=== PATIENT | male | born 1955 | race Caucasian/White ===

== ENCOUNTER 2024-11-10 16:42 | Inpatient (IN) | payer OTHER, SELFPAY ==
[2024-11-10] VITALS (7 sets, daily range): BP systolic 142–173; BP diastolic 101–133; BMI 23.6
--- NOTE | 2024-11-10 11:16 | ED.GENMED ---
History of Present Illness
General
Chief Complaint: Breathing Problem
Source: patient and spouse
Exam Limitations: none
Time Seen by Provider: 11/10/24 11:07
Nursing documentation reviewed up to this point in time: agreed with
History of Present Illness
History of Present Illness:
69 yo male w hx/o HTN PE on Xarelto, presents for a cough that has worsened over the past 5 days. His is just getting over a similar cough, his two 4-year-old twin granddaughters had similar URIs recently. Patient went to urgent care and had
a pulse ox of 93%, they put him on 4 L and he improved to 95%. He has had a productive cough with significant wheezing. He denies fever or chills. He denies chest pain.
Recent travel by plane to [place] for 2 weeks, he returned on 10/22.
Past History
Past History
ED Past Medical History: HTN, Hypercholesterolemia and Other (Pulmonary embolism 4 years ago after shoulder surgery)
ED Past Surgical History: Orthopedic (Fracture right shoulder surgically repaired)
Social History
Tobacco: Former smoker
Alcohol: None
Personal:
Living: with family
Employment: Retired
Review of Systems
Review of Systems
Allergies reviewed?: Yes
All Other Systems: ROS reviewed and negative except as documented in HPI and ROS
Constitutional: Denies fever
Respiratory: Reports cough and trouble breathing
Cardiac: Denies chest pain
ABD/GI: Denies abdominal pain, nausea, vomiting or diarrhea
: Denies dysuria or difficulty voiding
Musculoskeletal: Reports no symptoms
Skin: Reports no symptoms
Neurological: Reports no symptoms
Phy Exam
Physical Exam
Physical Exam:
GENERAL: No acute distress. A&Ox3.
CONSTITUTIONAL: Afebrile.
EYES: clear, conjunctivae normal
ENMT: moist mucus membranes, Pharynx nl
RESPIRATORY: Regular respirations, nonlabored, lungs with wheezing inspiratory and expiratory, coarse junky cough. Pulse ox 95% on 2 L nasal cannula
CARDIOVASCULAR: Regular rate and rhythm, no murmurs, no rubs.
GI: Soft, nontender
MUSCULOSKELETAL: Moves with ease. Well perfused.
SKIN: Warm, dry, pink
PSYCH: Normal mood and affect. Well kept, interactive and appropriate
NEUROLOGIC: Awake, alert and oriented. No focal neurological deficits
Scores
Heart Failure Risk
Heart Failure Risk Score: Not Applicable
Sepsis
Sepsis Screening
Sepsis Assessment: Sepsis Ruled Out
Sepsis Screen
Sepsis Screen: Sepsis Ruled Out
Date: 11/10/24
Time: 20:07
Course
Orders/Labs/Results
Orders:
Orders
11/10/24 11:03
Electrocardiogram (*1) Urgent
Reason for Study: Shortness of Breath
CR Chest - 2 Views Urgent
Comment:
Reason For Exam: cough
11/10/24 11:04
EKG- Treatment ONCE
11/10/24 11:18
Ipratropium/Albuterol Sulfate [Duoneb] 3 ml INH R NOW STA
11/10/24 11:19
COVID-19 Antigen Urgent
Source: Nasal Swab
Complete Blood Count/With Diff Urgent
Comprehensive Metabolic Panel Urgent
Influenza A+B Rapid Molecular Urgent
ROX Source: Nasal Swab
Specimen Description:
11/10/24 Dinner
Regular
At Your Request: Full Participation
Does patient need a safe tray?: No
11/10/24 15:22
Dexamethasone Sod Phosphate [Decadron] 10 mg IV NOW STA
Ipratropium/Albuterol Sulfate [Duoneb] 3 ml INH R NOW STA
11/10/24 16:23
Admit/Transfer Patient As Directed
Co-Sign Provider:
Level of Care: Inpatient admission
Assign to:: Medical/Surgical
Physician / Group: Lauryn Malcolm
Diagnosis: acute COPD exacerbation
Reason for Hospitalization: acute COPD exacerbation
Expected length of stay greater than two midnights?: Yes
ELOS- Estimated Length of Stay in days: 3
I certify the patient meets the requirements for IP care: Yes
PRN Pain Medication Management As Directed
May give lesser potent ordered pain med per pt: Yes
preference::
Protocol:: Medication orders for pain may be administered in a
manner that supports deferring to patient preference
when the pt is:
- Requesting an ordered lesser potent pain medication.
Least to most potent pain medications are defined
as: acetaminophen < NSAID < tramadol < opioids
(morphine, oxycodone, hydromorphone).
- Requesting a lesser dose of the same medication IF
ORDERED.
- Requesting a less intrusive route of administration
if both routes are prescribed by the provider (PO <
IV).
11/10/24 16:25
Code Status As Directed
Resuscitation Status: Full Code
11/10/24 17:57
Acetaminophen [Tylenol] 650 mg PO Q4HPRN PRN
Ipratropium/Albuterol Sulfate [Duoneb] 3 ml INH R Q4HPRN PRN
11/10/24 17:57
Activity As Directed
Activity Level: As Tolerated
Intake/ Output As Directed
Frequency: Per unit guidelines
Vital Signs As Directed
Frequency: Per unit guidelines
Weight As Directed
Frequency: Once
Comment: on admission
Copd Education [RESP] Routine
O2 Therapy [RESP] Routine
Titrate/Wean O2 to maintain O2 sat greater than (%): 93
Special Instructions: adjust, if necessary, to avoid hyperoxia in CO2 retainers.
Use High Flow O2 if necessary
11/10/24 20:00
Ipratropium/Albuterol Sulfate [Duoneb] 3 ml INH R QID
Triamcinolone Ointment [Triamcinolone Acetonide 0.1% Ointment] 1 applic TOPICAL BID
11/10/24 22:00
Cyclobenzaprine HCl [Flexeril] 10 mg PO HS
Trazodone [Desyrel] 100 mg PO HS
Zolpidem Tartrate [Ambien] 10 mg PO HS
11/11/24 06:00
Basic Metabolic Panel IN AM
Complete Blood Count/With Diff IN AM
Dexamethasone Sod Phosphate [Decadron] 6 mg IV Q12H
11/11/24 08:00
Docusate Sodium [Colace] 200 mg PO DAILY
Lisinopril [Zestril] 10 mg PO DAILY
Multivitamin [Theragran] 1 tablet PO DAILY
Pantoprazole [Protonix] 40 mg PO DAILY
Rivaroxaban [Xarelto] 20 mg PO DAILY
Tamsulosin [Flomax] 0.4 mg PO DAILY
Abnormal Lab Results
11/10/24
11:19
MCH 32.1 H pg
(27.0-31.0)
Absolute Neuts (auto) 8.6 H 10^3/uL
(1.4-6.5)
Absolute Lymphs (auto) 0.7 L 10^3/uL
(1.2-3.4)
Absolute Monos (auto) 0.9 H 10^3/uL
(0.1-0.6)
Neutrophils % 84.6 H %
(42.2-75.2)
Lymphocytes % 6.5 L %
(20.5-51.1)
Sodium 131 L mmol/L
(135-145)
Chloride 94 L mmol/L
(98-107)
Carbon Dioxide 31 H mmol/L
(22-30)
Glucose 136 H mg/dl
(70-99)
Total Bilirubin 1.7 H mg/dl
(0.2-1.3)
11/10/24 11:19
11/10/24 11:19
Vital Signs
Initial and Last Documented VS:
Initial Vital Signs
Temp Pulse Resp BP Pulse Ox
98.3 F 112 32 173/133 95
11/10/24 11:04 11/10/24 11:04 11/10/24 11:04 11/10/24 11:04 11/10/24 11:04
Last Documented Vital Signs
Temp Pulse Resp BP Pulse Ox
97.4 F 108 18 153/113 92
11/10/24 19:45 11/10/24 19:45 11/10/24 19:45 11/10/24 19:45 11/10/24 19:45
MDM/Problems Addressed
Differential Diagnosis Includes:
Reactive airway/asthma, bronchitis, pneumonia, COPD
MDM/Problems Addressed:
69 yo male w hx/o HTN PE on Xarelto, presents for a cough that has worsened over the past 5 days. His is just getting over a similar cough, his two 4-year-old twin granddaughters had similar URIs recently. Patient went to urgent care and had
a pulse ox of 93%, they put him on 4 L and he improved to 95%. He has had a productive cough with significant wheezing. He denies fever or chills. He denies chest pain.
Recent travel by plane to [place] for 2 weeks, he returned on 10/22.
EKG sinus tach with occasional PVCs
11:45 AM
CBC with no clinically significant abnormality
CMP no clinically significant abnormality
COVID-negative
3:15 PM:
Chest x-ray reveals no acute abnormality, flattening of the diaphragm consistent with COPD. Patient states he has never had this problem before and denies COPD
Not much improvement after DuoNeb
Second DuoNeb ordered as well as Decadron IV
4:00 PM
patient still struggling to breathe, hypoxemic off oxygen
Plan: Admit exacerbation COPD
hospitalist notified of admission
*EKG
EKG Intrepretation Date: 11/10/24
Interpretation: abnormal
Heart Rate: 114
Rate: tachycardiac
Rhythm: sinus
[place]: normal axis
Interval: normal interval
QRS Pattern: normal QRS
Ischemia: no ischemia
*Critical Care Note
Total Time (30-74mins, 75-104mins- exclusive of procedures): Not Applicable
ED Attending Note
-
Portions of this chart may have been created with voice recognition software.� Occasional wrong word or��sound alike� substitutions may have occurred due to the inherent limitations of voice recognition software.
Discharge Plan
Departure
Patient Disposition: Admit
Date of Disposition: 11/10/24
Time of Disposition: 15:50
Admit to: Med/Surg
Presentation/result/management discussed w/ accepting MD/DO: Hospitalist
Condition: Fair
Covid-19: Negative COVID-19
Discharge Problem:
Acute exacerbation of chronic obstructive pulmonary disease
Interventions
Interventions:
*Risk Screen - Suicide Last Done: 11/10/24 11:04
*General Assessment Last Done: 11/10/24 11:04
*Neglect/Abuse Screening Last Done: 11/10/24 11:04
*ED- Fall Risk Assessment Last Done: 11/10/24 11:28
*ED COVID-19 Vaccine History Last Done: 11/10/24 18:10
*Nursing Disposition Last Done: 11/10/24 18:00
ED- Cardiac Assessment Last Done: 11/10/24 11:26
ED- Pulmonary Assessment Last Done: 11/10/24 11:26
Discharge Date and Time
Discharge Date/Time: 11/10/24 18:00
[2024-11-10] MEDS: DUONEB 3 ML INH ×3 (11:21→20:18)
[2024-11-10 11:40] LABS: % Basophils 0.3 % (0-2); % Immature Granulocytes 0.3 % (0-0.5); % Lymphocytes 6.5 % (20.5-51.1); % Monocytes 8.3 % (1.7-9.3); % Neutrophils 84.6 % (42.2-75.2); ALT (SGPT) 23 U/L (0-50); AST (SGOT) 37 U/L (17-59); Absolute Lymphocytes 0.7 10^3/uL (1.2-3.4); Absolute Monocytes 0.9 10^3/uL (0.1-0.6); Absolute Neutrophils 8.6 10^3/uL (1.4-6.5); Albumin 4.2 g/dl (3.5-5.0); Alkaline Phosphatase 67 U/L (38-126); Blood Urea Nitrogen 15 mg/dl (9-20); Calcium 8.9 mg/dl (8.4-10.2); Carbon Dioxide 31 mmol/L (22-30); Chloride 94 mmol/L (98-107); Estimated Creatinine Clearance 84 ml/min; Glucose 136 mg/dl (70-99); Hematocrit 46.1 % (39.0-52.0); Hemoglobin 16.3 g/dL (13.0-18.0); Mean Corp Hgb Conc. 35.4 g/dL (33.0-37.0); Mean Corpuscular Hgb 32.1 pg (27.0-31.0); Mean Corpuscular Volume 90.7 fL (80.0-94.0); Nucleated Red Blood Cells % 0 % (-); Potassium 3.8 mmol/L (3.5-5.1); Red Blood Cell Count 5.08 10^6/uL (4.70-6.10); Red Cell Dist. Width 13.9 % (11.5-14.5); Sodium 131 mmol/L (135-145); Total Bilirubin 1.7 mg/dl (0.2-1.3); Total Protein 7.2 g/dl (6.3-8.2); White Blood Cell Count 10.2 10^3/uL (4.8-10.8); eGFR > 60.00
[2024-11-10 11:45] LABS: COVID-19 Antigen Negative (Negative)
[2024-11-10 12:06] LABS: Mean Platelet Volume 9.5 fL (7.4-10.4)
[2024-11-10 12:07] LABS: Platelet Count 131 10^3/uL (130-400)
[2024-11-10] MEDS: DECADRON 10 MG IV (15:26)
--- NOTE | 2024-11-10 15:56 | HPS.HSE ---
Family Physician
-
Family Physician: Maria Fernanda Crespo MD
Chief Complaint
-
cough
History of Present Illness
Patient is a 69-year-old male with past medical history significant for hypertension, hyperlipidemia, pulmonary embolism on Xarelto who presented to [facility] for evaluation of worsening cough over the past 5 days. Patient has multiple family members
with similar symptoms that have resolved for them. Patient states he went to urgent care this morning and they informed him he had too much going on for them to do anything and would need to be seen at the ED. Urgent care called EMS to transport
patient. He states while there they initiated oxygen but does not know why. He reports having a productive cough with clear sputum for past 5 days with associated shortness of breath. Denies any fever, chills, chest pain, nausea, vomiting,
constipation, diarrhea or urinary symptoms.
Medical History
Past Medical History
Past Medical History: Reports Other
Additional Past Medical History:
hypertension
hyperlipidemia
pulmonary embolism on Xarelto
Past Surgical History: Reports Other
Additional Past Surgical History:
Fracture right shoulder surgically repaired
Social History
Tobacco: Former Smoker (quit 10 years ago was a pack a day smoker)
Alcohol: Daily (3 rum and cokes daily )
Drug: None and Former User (medical marijuana formerly )
Personal:
Living: With Family
Employment: Retired
Family History
Family History: Other (Father: ALS; Mother: dementia, CVA)
Allergies / Home Medications
Allergies reflects when Allergies were last updated in [facility].
Home Medications with original date entered in [facility]
Allergy/Medication List:
Allergies
Allergy/AdvReac Type Severity Reaction Status Date / Time
No Known Allergies Allergy Verified 11/10/24 11:04
Home Medications
benzonatate 200 mg capsule 1 mg PO TIDPRN PRN cough 11/10/24
cyclobenzaprine 10 mg tablet 10 mg PO HS 11/10/24
docusate sodium 100 mg tablet 200 mg PO DAILY 11/10/24
lisinopril 10 mg tablet 10 mg PO DAILY 11/10/24
omeprazole 40 mg capsule,delayed release 40 mg PO DAILY 11/10/24
rivaroxaban 20 mg tablet (Xarelto) 20 mg PO DAILY 11/10/24
sildenafil 100 mg tablet 100 mg PO DAILYPRN PRN sexual function 11/10/24
tamsulosin 0.4 mg capsule 0.4 mg PO DAILY 11/10/24
therapeutic multivitamin 1 tab PO DAILY 11/10/24
trazodone 100 mg tablet 100 mg PO HS 11/10/24
triamcinolone acetonide 0.1 % topical ointment 1 applic topical BID 11/10/24
zolpidem 10 mg tablet 10 mg PO HS 11/10/24
Review of Systems
-
History Source: Patient
Constitutional: Reports No Symptoms
EENT: Reports No Symptoms
Respiratory: Reports Cough (productive ) and Trouble Breathing (worsening shortness of breath )
Cardiac: Reports No Symptoms
Abdomen/GI: Reports No Symptoms
: Reports No Symptoms
Musculoskeletal: Reports No Symptoms
Skin: Reports No Symptoms
Neurological: Reports No Symptoms
Endocrine: Reports No Symptoms
Hematologic/Lymphatic: Reports No Symptoms
Psych: Reports No Symptoms
Physical Exam
Vital Signs
Vital Signs
Temp Pulse Resp BP Pulse Ox
98.3 F 101 26 151/109 95
11/10/24 11:04 11/10/24 14:30 11/10/24 14:30 11/10/24 14:00 11/10/24 14:30
Physical Exam
General: Well Developed, Well Nourished, No Apparent Distress, Comfortable and Conversant
HEENT: NormoCephalic, Atraumatic, Nose Appears Normal and Ears Appear Normal
Respiratory: Wheezes, Non Labored Respirations and Other (moist cough )
Cardiac: S1/S2, Regular Rhythm and Tachycardia
Breast: Deferred by me
GI: Soft, Non Tender, Non Distended and Normal Bowel Sounds
Rectal: Deferred by Provider
Genito-urinary: Deferred by me
Musculoskeletal: No Clubbing, No Cyanosis and No Edema
Skin: Warm, Dry and IV/Catheter Site
Neuro: Awake, Alert, AO x 3 and Nonfocal/grossly intact
Psych: Calm and Intact Judgment/Insight
Laboratory Results
-
11/10/24 11:19
11/10/24 11:19
Laboratory Results
Total Bilirubin 1.7 mg/dl (0.2-1.3) H 11/10/24 11:19
AST 37 U/L (17-59) 11/10/24 11:19
ALT 23 U/L (0-50) 11/10/24 11:19
Alkaline Phosphatase 67 U/L (38-126) 11/10/24 11:19
Data Reviewed
-
Diagnostic Radiology: Report Reviewed by me (CXR: No acute disease of the chest. Findings suggesting COPD. Age-indeterminate compression fractures as described above.)
Medical Tests (Nuc Med, Echo, EKG etc): Report Reviewed by me (EKG; SINUS TACHYCARDIA WITH OCCASIONAL PREMATURE VENTRICULAR COMPLEXES POSSIBLE LEFT ATRIAL ENLARGEMENT)
Lab Data: Labs Reviewed by me (Na + 131)
Impression/Plan
-
IMPRESSION/PLAN:
#cough and shortness of breath likely 2/2 COPD exacerbation
Na+ 131
CXR: No acute disease of the chest.
Findings suggesting COPD.
Age-indeterminate compression fractures as described above.
EKG: SINUS TACHYCARDIA WITH OCCASIONAL PREMATURE VENTRICULAR COMPLEXES
POSSIBLE LEFT ATRIAL ENLARGEMENT
Covid: negative
Influenza: negative
- Admit to med/surg
- IV dexamethasone
- DuoNebs
- supportive care
#hypertension
- continue lisinopril
#pulmonary embolism
on Xarelto
- continue Xarelto
#GERD
- continue omeprazole
#hyperlipidemia
Code status: full code
DVT prophylaxis: Xarelto
--- NOTE | 2024-11-10 17:41 | W.PN.UPDATE ---
Update Note
Progress Note Update
This is an addendum to H&P written by Luh Berger on 11/10/2024.� Patient seen examined independently with BEE TENDER.
69-year-old male past medical history of hypertension, provoked�pulmonary embolism after shoulder surgery�4 years ago on Xarelto, hypercholesteremia, presenting with cough worsening over 5 days.� Multiple family numbers with similar cough.� Pulse ox
93% on 4 L.
Patient tachycardic.
Chest x-ray shows no acute disease of the chest, likely COPD.� EKG shows sinus tachycardia.
Patient�with�likely acute COPD exacerbation.� DuoNebs every 6 hours, dexamethasone.
--- NOTE | 2024-11-10 18:10 | PTCARENOTE ---
11/10- Patient oriented and transferred to unit without issue. Patient is AAOX3 but WEBB, has Inspiratory/Expiratory wheezing throughout with an occasional harsh nonproductive wet cough. POX=91% on RA with HX=897. POX=97% on 2L with EF=151. Systemic
maculopapular rash observed. Patient states he drinks 2-4 Bacari-cokes daily, but his last drink was 5 days ago, which was when all of these symptoms began, as per patient. Notified Physician. Continue to monitor.
[2024-11-10] MEDS: ZESTRIL 10 MG PO (20:21)
[2024-11-10] MEDS: THIAMINE INJECTION 200 MG IV (21:50)
[2024-11-10] MEDS: DESYREL 100 MG PO (21:57)
[2024-11-10] MEDS: FLEXERIL PO (21:58)
[2024-11-10] MEDS: FLEXERIL 10 MG PO (21:59)
[2024-11-10] MEDS: AMBIEN 10 MG PO (22:35)
[2024-11-10] MEDS: TRIAMCINOLONE ACETONIDE 0.1% OINTMENT 1 APPLIC TOPICAL (22:35)
[2024-11-11 00:19] VITALS: BP 156/100
[2024-11-11 01:37] VITALS: BP 154/102
[2024-11-11] MEDS: DECADRON 6 MG IV (05:35)
[2024-11-11 06:50] VITALS: BP 137/95
[2024-11-11] MEDS: DUONEB 3 ML INH ×4 (07:22→19:20)
[2024-11-11 07:47] LABS: % Basophils 0.1 % (0-2); % Immature Granulocytes 0.3 % (0-0.5); % Monocytes 6.2 % (1.7-9.3); % Neutrophils 87.4 % (42.2-75.2); Absolute Lymphocytes 0.6 10^3/uL (1.2-3.4); Absolute Monocytes 0.6 10^3/uL (0.1-0.6); Hemoglobin 16.2 g/dL (13.0-18.0); Mean Corpuscular Hgb 32.3 pg (27.0-31.0); Mean Corpuscular Volume 89.8 fL (80.0-94.0); Mean Platelet Volume 9.6 fL (7.4-10.4); Nucleated Red Blood Cells % 0 % (-); Platelet Count 136 10^3/uL (130-400); Red Blood Cell Count 5.01 10^6/uL (4.70-6.10); Red Cell Dist. Width 13.6 % (11.5-14.5); White Blood Cell Count 9.2 10^3/uL (4.8-10.8)
[2024-11-11] MEDS: COLACE 200 MG PO (08:13)
[2024-11-11] MEDS: FLOMAX 0.4 MG PO (08:13)
[2024-11-11] MEDS: XARELTO 20 MG PO (08:13)
[2024-11-11] MEDS: THERAGRAN 1 TABLET PO (08:14)
[2024-11-11] MEDS: PROTONIX 40 MG PO (08:14)
[2024-11-11] MEDS: TRIAMCINOLONE ACETONIDE 0.1% OINTMENT 1 APPLIC TOPICAL ×2 (08:14→21:16)
[2024-11-11] MEDS: ZESTRIL 10 MG PO (08:14)
[2024-11-11 08:33] LABS: Blood Urea Nitrogen 21 mg/dl (9-20); Calcium 8.9 mg/dl (8.4-10.2); Carbon Dioxide 27 mmol/L (22-30); Chloride 98 mmol/L (98-107); Estimated Creatinine Clearance 94 ml/min; Glucose 148 mg/dl (70-99); Potassium 3.7 mmol/L (3.5-5.1); Sodium 133 mmol/L (135-145); eGFR > 60.00
--- NOTE | 2024-11-11 15:15 | W.PN.HOSP.TC ---
Today's Communication/Plan
-
Nebs
AB
Steroids
Assessment / Plan
Assessment / Plan
69-year-old male with cough
CVS: S1-S2 normal
Chest: Rales and Rhonchi B/L
Abdomen: Soft, NT / Bowel sounds present
Extremities: No edema
# COPD exacerbation
Chest x-ray with no acute changes
COVID and influenza negative
Continue DuoNebs, steroids
Sputum Cx
# Hypertension-continue lisinopril
# Pulmonary bowel is on-continue Xarelto
# Prostate Disease-continue Flomax
# GERD-continue PPI
# Insomnia-continue Ambien
# DVT prophylaxis-Xarelto
# Full code
D/W at bed side
Part of this note was created using voice recognition system. Occasional wrong word or��sound alike� substitutions may have inadvertently occurred due to the inherent limitations of voice recognition software. If noted kindly bring it to my
attention for correction.
Anticipated Discharge: 24 - 48 hours
Subjective/Interval History
-
Date of Service: November 11, 2024
Objective Data
-
Labs:
Laboratory Results
11/11/24
07:19
WBC 9.2
Hgb 16.2
Hct 45.0
Plt Count 136
Sodium 133 L
Potassium 3.7
Chloride 98
Carbon Dioxide 27
BUN 21 H
Creatinine 0.8
Glucose 148 H
Calcium 8.9
Vital Signs:
Vital Signs
Temp Pulse Resp BP Pulse Ox
97.7 F 113 16 137/95 91
11/11/24 06:50 11/11/24 11:04 11/11/24 11:04 11/11/24 06:50 11/11/24 11:04
[2024-11-11 16:05] VITALS: BP 141/69
[2024-11-11] MEDS: VIBRAMYCIN 100 MG PO ×2 (16:44→21:16)
[2024-11-11] MEDS: DECADRON 4 MG IV (16:45)
[2024-11-11] MEDS: FLUSH (NSS) 1 FLUSH IV (16:47)
--- NOTE | 2024-11-11 16:51 | CM ---
branch services manager reviewed patient's chart and met with patient and patient reports that he lives with his spouse in a multilevel home, patient is independent with adl's and ambulation, no dme, patient reports the he has been feeling weak and unable to
drive. branch services manager offered patient with any support for alcohol use however patient denied the need for intervention. Plan is to home with spouse when stable.
PCP: Maria Fernanda Crespo
Pharmacy; [facility] in [place].
[2024-11-11] MEDS: FLEXERIL 10 MG PO (21:15)
[2024-11-11] MEDS: DESYREL 100 MG PO (22:35)
[2024-11-11] MEDS: TYLENOL 650 MG PO (22:36)
[2024-11-11] MEDS: AMBIEN 10 MG PO (22:36)
[2024-11-11 23:22] VITALS: BP 140/95
[2024-11-12] MEDS: DECADRON 4 MG IV ×3 (00:03→16:57)
[2024-11-12 07:00] VITALS: BP 136/99
[2024-11-12] MEDS: TRIAMCINOLONE ACETONIDE 0.1% OINTMENT 1 APPLIC TOPICAL ×2 (08:25→20:45)
[2024-11-12] MEDS: FLUSH (NSS) 2 FLUSH IV (08:30)
[2024-11-12] MEDS: XARELTO 20 MG PO (08:31)
[2024-11-12] MEDS: FLOMAX 0.4 MG PO (08:31)
[2024-11-12] MEDS: COLACE 200 MG PO (08:31)
[2024-11-12] MEDS: ZESTRIL 10 MG PO (08:32)
[2024-11-12] MEDS: PROTONIX 40 MG PO (08:32)
[2024-11-12] MEDS: VIBRAMYCIN 100 MG PO ×2 (08:34→20:45)
[2024-11-12] MEDS: THERAGRAN 1 TABLET PO (08:35)
[2024-11-12] MEDS: DUONEB 3 ML INH ×5 (09:00→22:38)
--- NOTE | 2024-11-12 12:23 | PN.CDI ---
CDI
- -
CDI:
Physician Documentation Request
Admit Date: 11/10/24 16:42
Dear Doctor,
Please review the following and provide your response in the progress notes.
Clinical Indicators:
Pt admitted with COPD exacerbation.
Laboratory Tests
11/10/24 11/11/24
11:19 07:19
Sodium 131 L 133 L
Based on the above abnormal lab values, could you clarify in the progress notes, the appropriate diagnosis, if significant, that supports the above abnormalities and additional evaluation, monitoring and/or treatment rendered:
Hyponatremia
Insignificant abnormal lab values
Other
Use of terms such as suspected, likely, concern for, or probable (associated with a specific diagnosis that is being evaluated, monitored, or treated as if it exists) are acceptable and can be coded in the inpatient setting, when documented at the
time of discharge.
Thank you,
Bambi Vu RN, BSN
CDI Specialist
[facility]
Please use your independent medical judgment in providing your response.
[2024-11-12 15:26] VITALS: BP 127/97
--- NOTE | 2024-11-12 16:35 | CM ---
Home when stable, no needs.
Plan; Home no needs when stable.
[2024-11-12] MEDS: FLUSH (NSS) 1 FLUSH IV (16:58)
--- NOTE | 2024-11-12 17:04 | W.PN.HOSP.TC ---
Addendum entered and electronically signed by Fermín Heredia MD 11/12/24 18:13:
Mild hyponatremia-better
Original Note:
Today's Communication/Plan
-
Decrease steroids
Wean O2 as tolerated
Assessment / Plan
Assessment / Plan
69-year-old male with cough
CVS: S1-S2 normal
Chest: Rales and Rhonchi B/L
Abdomen: Soft, NT / Bowel sounds present
Extremities: No edema
# COPD exacerbation
Acute hypoxic respiratory sufficiency-on 2 L of oxygen. Wean as tolerated
Chest x-ray with no acute changes
COVID and influenza negative
Continue DuoNebs, steroids, Doxy
Sputum Cx
# Hypertension-Continue Lisinopril
# Pulmonary bowel is on-Continue Xarelto
# Prostate Disease-continue Flomax
# GERD-continue PPI
# Insomnia-continue Ambien
# DVT prophylaxis-Xarelto
# Full code
Part of this note was created using voice recognition system. Occasional wrong word or��sound alike� substitutions may have inadvertently occurred due to the inherent limitations of voice recognition software. If noted kindly bring it to my
attention for correction.
Anticipated Discharge: Within 24 hours
Subjective/Interval History
-
Date of Service: November 12, 2024
Objective Data
-
Vital Signs:
Vital Signs
Temp Pulse Resp BP Pulse Ox
97.9 F 104 16 127/97 93
11/12/24 15:26 11/12/24 15:44 11/12/24 15:44 11/12/24 15:26 11/12/24 15:44
I&O
11/11/24 11/12/24 11/13/24
06:59 06:59 06:59
Intake Total 840 / 840
Balance 840 / 840
[2024-11-12] MEDS: MUCINEX 600 MG PO (20:45)
[2024-11-12] MEDS: AMBIEN 10 MG PO (23:06)
[2024-11-12] MEDS: FLEXERIL 10 MG PO (23:06)
[2024-11-12] MEDS: DECADRON 3 MG IV (23:06)
[2024-11-12] MEDS: DESYREL 100 MG PO (23:06)
--- NOTE | 2024-11-12 23:30 | PTCARENOTE ---
Around 2100, patient reported feeling dizzy upon standing and after getting back in bed. He was also feeling SOB. His lungs had insp and exp wheezes throughout L side and exp wheezes throughout R. BP while in bed was 144/90, HR 102, T 97.8, RR 18
Pulse ox 92-93% on RA. Advised that he may need to have BP checked before and after standing at a future time.
Contacted resp team for PRN neb tx; however, it was too soon from his last one, but they would come when enough time has passed. Placed patient on 2L of O2 until neb tx. Patient reported being on the O2 helped with the SOB and the dizziness had
improved after resting more.
Patient reported that the oxygen was drying him out. Pulse ox was 88 on RA%. Humidification applied. Pulse ox on 2 L was 90%. Increased to 3L, 92-93%. Patient felt improvement in symptoms.
[2024-11-12 23:40] VITALS: BP 155/110
[2024-11-12 23:53] VITALS: BP 153/93
[2024-11-13] MEDS: DUONEB 3 ML INH ×4 (07:42→20:15)
[2024-11-13 08:00] VITALS: BP 124/87; BP 130/91; BP 137/90; PULSE 106; PULSE 80; PULSE 94
[2024-11-13] MEDS: VIBRAMYCIN 100 MG PO (08:42)
[2024-11-13] MEDS: MUCINEX 600 MG PO ×2 (08:42→22:07)
[2024-11-13] MEDS: FLOMAX 0.4 MG PO (08:42)
[2024-11-13] MEDS: ZESTRIL 10 MG PO (08:42)
[2024-11-13] MEDS: THERAGRAN 1 TABLET PO (08:42)
[2024-11-13] MEDS: PROTONIX 40 MG PO (08:42)
[2024-11-13] MEDS: TRIAMCINOLONE ACETONIDE 0.1% OINTMENT 1 APPLIC TOPICAL ×2 (08:43→22:07)
[2024-11-13] MEDS: XARELTO 20 MG PO (08:43)
[2024-11-13] MEDS: COLACE 200 MG PO (08:43)
[2024-11-13] MEDS: DECADRON 3 MG IV ×3 (08:44→23:12)
[2024-11-13 08:48] LABS: Blood Urea Nitrogen 27 mg/dl (9-20); Calcium 8.8 mg/dl (8.4-10.2); Carbon Dioxide 27 mmol/L (22-30); Chloride 99 mmol/L (98-107); Estimated Creatinine Clearance 84 ml/min; Glucose 124 mg/dl (70-99); Potassium 3.8 mmol/L (3.5-5.1); Sodium 132 mmol/L (135-145); eGFR > 60.00
--- NOTE | 2024-11-13 14:56 | W.PN.HOSP.TC ---
Today's Communication/Plan
-
Discontinue doxycycline and start Levaquin
Added 3% saline inhalation
Symbicort
Assessment / Plan
Assessment / Plan
69-year-old male with cough
CVS: S1-S2 normal
Chest: Rales and Rhonchi B/L
Abdomen: Soft, NT / Bowel sounds present
Extremities: No edema
# COPD exacerbation
Acute hypoxic respiratory sufficiency-Off O2. Last night needed 2 L. Now off
Chest x-ray with no acute changes
COVID and influenza negative
Continue DuoNebs, steroids, Doxy
Add Symbicort inhaler
Change antibiotics from doxycycline to Levaquin
Sputum Cx
# Hypertension-Continue Lisinopril
# Pulmonary embolism on-Continue Xarelto
# Prostate Disease-continue Flomax
# GERD-continue PPI
# Insomnia-continue Ambien. Hold trazodone tonight due to interaction. Add Benadryl
# DVT prophylaxis-Xarelto
# Full code
Discussed with nursing
Part of this note was created using voice recognition system. Occasional wrong word or��sound alike� substitutions may have inadvertently occurred due to the inherent limitations of voice recognition software. If noted kindly bring it to my
attention for correction.
Anticipated Discharge: 24 - 48 hours
Subjective/Interval History
-
Date of Service: November 13, 2024
Objective Data
-
Labs:
Laboratory Results
11/13/24
07:34
Sodium 132 L
Potassium 3.8
Chloride 99
Carbon Dioxide 27
BUN 27 H
Creatinine 0.9
Glucose 124 H
Calcium 8.8
Vital Signs:
Vital Signs
Temp Pulse Resp BP Pulse Ox
98.0 F 89 16 130/91 93
11/13/24 08:00 11/13/24 11:30 11/13/24 11:30 11/13/24 08:00 11/13/24 11:30
I&O
11/12/24 11/13/24 11/14/24
06:59 06:59 06:59
Intake Total 840 / 840 1180 / 1180
Balance 840 / 840 1180 / 1180
[2024-11-13 15:05] LABS: Osmolality Serum 278 mOsm/kg (275-300)
[2024-11-13] MEDS: LEVAQUIN 750 MG PO (15:06)
[2024-11-13 15:16] LABS: TSH 0.93 uIU/ml (0.47-4.68)
[2024-11-13 15:17] LABS: Osmolality Urine 822 mOsm/kg (300-900)
[2024-11-13 15:30] VITALS: BP 138/95
[2024-11-13 15:32] LABS: Urine Sodium 53 mmol/L (30-90)
--- NOTE | 2024-11-13 15:46 | CM ---
CM reviewed chart, plan remains home when stable.
Plan; home when stable.
[2024-11-13] MEDS: SODIUM CHLORIDE 3% FOR INHALATION 1 VIAL INH ×2 (16:02→20:15)
[2024-11-13] MEDS: MIRALAX 17 GRAMS PO (16:49)
[2024-11-13] MEDS: SYMBICORT 160/4.5 MCG INHALER 2 PUFF INH (20:16)
[2024-11-13] MEDS: BENADRYL 50 MG PO (22:07)
[2024-11-13] MEDS: SENOKOT 17.2 MG PO (22:08)
[2024-11-13] MEDS: AMBIEN 10 MG PO (22:10)
[2024-11-13] MEDS: FLEXERIL 10 MG PO (22:10)
[2024-11-13 23:49] VITALS: BP 154/100
[2024-11-14] MEDS: TYLENOL 650 MG PO (01:32)
[2024-11-14 07:58] VITALS: BP 151/109
[2024-11-14] MEDS: SODIUM CHLORIDE 3% FOR INHALATION 1 VIAL INH ×2 (07:59→19:53)
[2024-11-14] MEDS: DUONEB 3 ML INH ×4 (07:59→19:53)
[2024-11-14] MEDS: SYMBICORT 160/4.5 MCG INHALER 2 PUFF INH ×2 (08:00→19:53)
[2024-11-14] MEDS: MIRALAX 17 GRAMS PO (08:58)
[2024-11-14] MEDS: COLACE 200 MG PO (08:59)
[2024-11-14] MEDS: FLOMAX 0.4 MG PO (08:59)
[2024-11-14] MEDS: LEVAQUIN 750 MG PO (08:59)
[2024-11-14] MEDS: MUCINEX 600 MG PO ×2 (08:59→21:00)
[2024-11-14] MEDS: DECADRON 3 MG IV (09:01)
[2024-11-14] MEDS: TRIAMCINOLONE ACETONIDE 0.1% OINTMENT 1 APPLIC TOPICAL ×2 (09:03→21:00)
[2024-11-14] MEDS: PROTONIX 40 MG PO (09:03)
[2024-11-14] MEDS: THERAGRAN 1 TABLET PO (09:03)
[2024-11-14] MEDS: ZESTRIL 10 MG PO (09:04)
[2024-11-14] MEDS: XARELTO 20 MG PO (09:04)
--- NOTE | 2024-11-14 13:42 | CM ---
Chart reviewed home when stable, no needs.
Plan; Home no needs when stable.
[2024-11-14 14:55] LABS: Blood Urea Nitrogen 28 mg/dl (9-20); Calcium 8.7 mg/dl (8.4-10.2); Carbon Dioxide 28 mmol/L (22-30); Chloride 99 mmol/L (98-107); Estimated Creatinine Clearance 94 ml/min; Glucose 101 mg/dl (70-99); Potassium 4.3 mmol/L (3.5-5.1); Sodium 131 mmol/L (135-145); eGFR > 60.00
[2024-11-14 15:34] VITALS: BP 142/91
--- NOTE | 2024-11-14 16:54 | W.PN.HOSP.TC ---
Addendum entered and electronically signed by Fermín Heredia MD 11/14/24 16:57:
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 1 dose of Lasix
Original Note:
Today's Communication/Plan
-
Bowel regimen
Continue antibiotics
Reduce steroids
Assessment / Plan
Assessment / Plan
69-year-old male with cough
CVS: S1-S2 normal
Chest: Rales and Rhonchi B/L
Abdomen: Soft, NT / Bowel sounds present
Extremities: No edema
# COPD exacerbation
Acute Hypoxic Respiratory sufficiency-Off O2.
Chest x-ray with no acute changes
COVID and Influenza negative
Continue DuoNebs, Steroids, Doxy
Add Symbicort inhaler
Changed antibiotics from doxycycline to Levaquin
Sputum Cx pending
# Constipation-bowel regimen ordered
# Hypertension-Continue Lisinopril
# Pulmonary embolism on-Continue Xarelto
# Prostate Disease-continue Flomax
# GERD-continue PPI
# Insomnia-continue Ambien. Hold trazodone tonight due to interaction. Added Benadryl.
# DVT prophylaxis-Xarelto
# Full code
Discussed with nursing
Discussed with at bedside
Part of this note was created using voice recognition system. Occasional wrong word or��sound alike� substitutions may have inadvertently occurred due to the inherent limitations of voice recognition software. If noted kindly bring it to my
attention for correction.
Anticipated Discharge: Within 24 hours
Subjective/Interval History
-
Date of Service: November 14, 2024
Objective Data
-
Labs:
Laboratory Results
11/14/24
14:19
Sodium 131 L
Potassium 4.3
Chloride 99
Carbon Dioxide 28
BUN 28 H
Creatinine 0.8
Glucose 101 H
Calcium 8.7
Vital Signs:
Vital Signs
Temp Pulse Resp BP Pulse Ox
97.8 F 74 17 142/91 94
11/14/24 15:34 11/14/24 15:34 11/14/24 15:34 11/14/24 15:34 11/14/24 15:34
I&O
11/13/24 11/14/24 11/15/24
06:59 06:59 06:59
Intake Total 1180 / 1180 1440 / 1440
Balance 1180 / 1180 1440 / 1440
[2024-11-14] MEDS: DECADRON IV (17:11)
[2024-11-14] MEDS: CITROMA 150 ML PO (17:12)
[2024-11-14] MEDS: LASIX 20 MG PO (17:13)
[2024-11-14] MEDS: DECADRON 2 MG IV (17:15)
[2024-11-14] MEDS: AMBIEN 10 MG PO (21:02)
[2024-11-14] MEDS: FLEXERIL 10 MG PO (21:02)
[2024-11-14] MEDS: SENOKOT 17.2 MG PO (21:02)
[2024-11-14] MEDS: BENADRYL 50 MG PO (21:02)
[2024-11-14 23:12] VITALS: BP 145/98
[2024-11-15] MEDS: DECADRON 2 MG IV ×3 (02:45→17:19)
[2024-11-15] MEDS: TYLENOL 650 MG PO ×2 (03:21→22:10)
[2024-11-15 07:15] VITALS: BP 153/98
[2024-11-15] MEDS: SYMBICORT 160/4.5 MCG INHALER 2 PUFF INH ×2 (07:30→20:37)
[2024-11-15] MEDS: DUONEB 3 ML INH ×4 (07:30→20:36)
[2024-11-15] MEDS: SODIUM CHLORIDE 3% FOR INHALATION 1 VIAL INH ×2 (07:30→20:37)
[2024-11-15 08:12] LABS: Blood Urea Nitrogen 25 mg/dl (9-20); Calcium 8.5 mg/dl (8.4-10.2); Carbon Dioxide 30 mmol/L (22-30); Chloride 100 mmol/L (98-107); Estimated Creatinine Clearance 94 ml/min; Glucose 113 mg/dl (70-99); Potassium 4.8 mmol/L (3.5-5.1); Sodium 132 mmol/L (135-145); eGFR > 60.00
[2024-11-15] MEDS: COLACE 200 MG PO (08:47)
[2024-11-15] MEDS: MUCINEX 600 MG PO ×2 (08:47→20:21)
[2024-11-15] MEDS: PROTONIX 40 MG PO (08:47)
[2024-11-15] MEDS: FLOMAX 0.4 MG PO (08:48)
[2024-11-15] MEDS: TRIAMCINOLONE ACETONIDE 0.1% OINTMENT 1 APPLIC TOPICAL ×2 (08:48→20:21)
[2024-11-15] MEDS: LEVAQUIN 750 MG PO (08:48)
[2024-11-15] MEDS: ZESTRIL 10 MG PO (08:48)
[2024-11-15] MEDS: THERAGRAN 1 TABLET PO (08:48)
[2024-11-15] MEDS: MIRALAX 17 GRAMS PO (08:48)
[2024-11-15] MEDS: XARELTO 20 MG PO (08:48)
[2024-11-15] MEDS: CITROMA 150 ML PO (12:27)
--- NOTE | 2024-11-15 14:01 | W.PN.HOSP.TC ---
Today's Communication/Plan
-
Continue Levaquin
Further reduce Decadron
1 dose of Lasix for hyponatremia
Assessment / Plan
Assessment / Plan
69-year-old male with cough
CVS: S1-S2 normal
Chest: Rales and Rhonchi B/L
Abdomen: Soft, NT / Bowel sounds present
Extremities: No edema
# COPD exacerbation
Acute Hypoxic Respiratory sufficiency-Off O2.
Chest x-ray with no acute changes
COVID and Influenza negative
Continue DuoNebs, Steroids, Doxy
Add Symbicort inhaler
Changed antibiotics from doxycycline to Levaquin
Sputum Cx pending
# Constipation-bowel regimen ordered, Mag citrate
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 Add a dose of Lasix
# Hypertension-Continue Lisinopril
# Pulmonary embolism on-Continue Xarelto
# Prostate Disease-continue Flomax
# GERD-continue PPI
# Insomnia-continue Ambien. Hold trazodone tonight due to interaction. Added Benadryl.
# DVT prophylaxis-Xarelto
# Full code
Discussed with nursing
Part of this note was created using voice recognition system. Occasional wrong word or��sound alike� substitutions may have inadvertently occurred due to the inherent limitations of voice recognition software. If noted kindly bring it to my
attention for correction.
Anticipated Discharge: Within 24 hours
Subjective/Interval History
-
Date of Service: November 15, 2024
Objective Data
-
Labs:
Laboratory Results
11/15/24
06:51
Sodium 132 L
Potassium 4.8
Chloride 100
Carbon Dioxide 30
BUN 25 H
Creatinine 0.8
Glucose 113 H
Calcium 8.5
Vital Signs:
Vital Signs
Temp Pulse Resp BP Pulse Ox
97.6 F 75 16 153/98 96
11/15/24 07:15 11/15/24 11:13 11/15/24 11:13 11/15/24 07:15 11/15/24 11:13
I&O
11/14/24 11/15/24 11/16/24
06:59 06:59 06:59
Intake Total 1440 / 1440 780 / 780
Balance 1440 / 1440 780 / 780
[2024-11-15] MEDS: LASIX 20 MG PO (14:11)
[2024-11-15 15:00] VITALS: BP 135/83
--- NOTE | 2024-11-15 15:21 | CM ---
Chart reviewed and plan is to home no needs when stable.
Plan; Home no needs when stable.
[2024-11-15 15:45] VITALS: BP 135/83
[2024-11-15] MEDS: SENOKOT 17.2 MG PO (20:21)
[2024-11-15] MEDS: FLEXERIL 10 MG PO (20:21)
[2024-11-15] MEDS: BENADRYL 50 MG PO (22:10)
[2024-11-15] MEDS: AMBIEN 10 MG PO (22:10)
[2024-11-15 23:12] VITALS: BP 135/86
[2024-11-16] MEDS: DECADRON 2 MG IV ×2 (02:20→10:06)
[2024-11-16] MEDS: DUONEB 3 ML INH ×3 (07:21→20:38)
[2024-11-16] MEDS: SYMBICORT 160/4.5 MCG INHALER 2 PUFF INH ×2 (07:21→20:46)
[2024-11-16] MEDS: SODIUM CHLORIDE 3% FOR INHALATION 1 VIAL INH ×2 (07:21→20:38)
[2024-11-16 07:40] VITALS: BP 153/94
[2024-11-16] MEDS: FLOMAX 0.4 MG PO (08:31)
[2024-11-16] MEDS: LEVAQUIN 750 MG PO (08:31)
[2024-11-16] MEDS: MUCINEX 600 MG PO ×2 (08:31→20:37)
[2024-11-16] MEDS: XARELTO 20 MG PO (08:31)
[2024-11-16] MEDS: THERAGRAN 1 TABLET PO (08:31)
[2024-11-16] MEDS: COLACE 200 MG PO (08:31)
[2024-11-16] MEDS: MIRALAX 17 GRAMS PO (08:31)
[2024-11-16] MEDS: PROTONIX 40 MG PO (08:31)
[2024-11-16] MEDS: ZESTRIL 10 MG PO (08:31)
[2024-11-16] MEDS: TRIAMCINOLONE ACETONIDE 0.1% OINTMENT 1 APPLIC TOPICAL ×2 (08:31→20:39)
--- NOTE | 2024-11-16 14:25 | W.PN.HOSP.TC ---
Today's Communication/Plan
-
Bowel regimen started working
Change steroids to p.o.
If stable will discharge tomorrow
Assessment / Plan
Assessment / Plan
69-year-old male with cough
CVS: S1-S2 normal
Chest: Mostly clear
Abdomen: Soft, NT / Bowel sounds present
Extremities: No edema
# COPD exacerbation
Acute Hypoxic Respiratory sufficiency-Off O2.
Chest x-ray with no acute changes
COVID and Influenza negative
Continue DuoNebs, Steroids changed to PO.
Symbicort inhaler
Changed antibiotics from doxycycline to Levaquin
Sputum Cx pending
# Constipation-bowel regimen ordered, Mag citrate worked. Had Bms.
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 S/P Lasix
# Hypertension-Continue Lisinopril
# Pulmonary embolism on-Continue Xarelto
# Prostate Disease-continue Flomax
# GERD-continue PPI
# Insomnia-continue Ambien. Hold trazodone due to interaction with Levaquin. Added Benadryl.
# DVT prophylaxis-Xarelto
# Full code
Discussed with nursing
Part of this note was created using voice recognition system. Occasional wrong word or��sound alike� substitutions may have inadvertently occurred due to the inherent limitations of voice recognition software. If noted kindly bring it to my
attention for correction.
Anticipated Discharge: Within 24 hours
Subjective/Interval History
-
Date of Service: November 16, 2024
Objective Data
-
Vital Signs:
Vital Signs
Temp Pulse Resp BP Pulse Ox
97.7 F 72 18 153/94 98
11/16/24 08:30 11/16/24 11:28 11/16/24 11:28 11/16/24 07:40 11/16/24 11:28
I&O
11/15/24 11/16/24 11/17/24
06:59 06:59 06:59
Intake Total 780 / 780 1320 / 1320
Balance 780 / 780 1320 / 1320
[2024-11-16 15:11] VITALS: BP 141/41
[2024-11-16] MEDS: DUONEB INH (15:16)
[2024-11-16 15:21] LABS: Blood Urea Nitrogen 17 mg/dl (9-20); Calcium 9.3 mg/dl (8.4-10.2); Carbon Dioxide 31 mmol/L (22-30); Chloride 98 mmol/L (98-107); Estimated Creatinine Clearance 94 ml/min; Glucose 93 mg/dl (70-99); Potassium 4.9 mmol/L (3.5-5.1); Sodium 131 mmol/L (135-145); eGFR > 60.00
[2024-11-16] MEDS: DELTASONE 40 MG PO (16:02)
--- NOTE | 2024-11-16 16:03 | CM ---
CM reviewed chart, consult received for nebulizer. Patient and seen bedside, patient hopeful for discharge tomorrow. Discussed need for nebulizer, will need script prior to discharge. Call to patients pharmacy to confirm nebulizers in stock-
[facility]- report they do not carry nebulizers, will call [facility] tomorrow, currently closed.
Plan; home, will need script for nebulizer
[2024-11-16] MEDS: TYLENOL 650 MG PO (22:47)
[2024-11-16] MEDS: SENOKOT 17.2 MG PO (22:48)
[2024-11-16] MEDS: FLEXERIL 10 MG PO (22:48)
[2024-11-16] MEDS: AMBIEN 10 MG PO (22:48)
[2024-11-16] MEDS: BENADRYL 50 MG PO (22:48)
[2024-11-17] MEDS: MORPHINE SULFATE 2 MG IV ×2 (00:21→06:54)
[2024-11-17] MEDS: FLUSH (NSS) 1 FLUSH IV ×2 (00:23→06:54)
[2024-11-17] MEDS: SODIUM CHLORIDE 3% FOR INHALATION 1 VIAL INH (07:19)
[2024-11-17] MEDS: DUONEB 3 ML INH ×2 (07:19→11:26)
[2024-11-17] MEDS: SYMBICORT 160/4.5 MCG INHALER 2 PUFF INH (07:19)
[2024-11-17 07:30] VITALS: BP 126/92
[2024-11-17] MEDS: TRIAMCINOLONE ACETONIDE 0.1% OINTMENT 1 APPLIC TOPICAL (08:38)
[2024-11-17] MEDS: THERAGRAN 1 TABLET PO (08:38)
[2024-11-17] MEDS: XARELTO 20 MG PO (08:38)
[2024-11-17] MEDS: DELTASONE 40 MG PO (08:38)
[2024-11-17] MEDS: MUCINEX 600 MG PO (08:38)
[2024-11-17] MEDS: COLACE 200 MG PO (08:38)
[2024-11-17] MEDS: PROTONIX 40 MG PO (08:38)
[2024-11-17] MEDS: ZESTRIL 10 MG PO (08:38)
[2024-11-17] MEDS: FLOMAX 0.4 MG PO (08:38)
[2024-11-17] MEDS: MIRALAX 17 GRAMS PO (08:38)
[2024-11-17] MEDS: LEVAQUIN 750 MG PO (08:38)
--- NOTE | 2024-11-17 13:22 | W.PN.HOSP.TC ---
Today's Communication/Plan
-
Discharge
Assessment / Plan
Assessment / Plan
69-year-old male with cough
CVS: S1-S2 normal
Chest: Clear to auscultation
Abdomen: Soft, NT / Bowel sounds present
Extremities: No edema
# COPD exacerbation
Acute Hypoxic Respiratory sufficiency-Off O2.
Chest x-ray with no acute changes
COVID and Influenza negative
Continue DuoNebs, Steroids changed to PO.
Symbicort inhaler for discharge
Lung function testing as outpatient
Changed antibiotics from doxycycline to Levaquin
Sputum Cx usual eleonora
# Constipation-bowel regimen ordered, Mag citrate worked. Had Bms.
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 S/P Lasix. Repeat BMP as outpatient in 1 week
# Hypertension-Continue Lisinopril
# Pulmonary embolism on-Continue Xarelto
# Prostate Disease-continue Flomax
# GERD-continue PPI
# Vertebral compression fractures and chronic back pain. Patient uses Flexeril at home. He stated that since he has been in the bed at the hospital his pain and stiffness as slightly worse. He requested pain medicines. Tramadol has interaction
with Levaquin and Flexeril. I have given him 8 tablets of oxycodone to be used only absolutely needed. He is aware about the problems and side effects of oxycodone. Including addiction potential. If his pain is not improving after a being at
home he is aware that he needs imaging and see PCP.
# Insomnia-continue Ambien. Hold trazodone due to interaction with Levaquin.
# DVT prophylaxis-Xarelto
# Full code
Discussed with nursing
Nebulizer sent to pharmacy
Discharge time 39 min
Part of this note was created using voice recognition system. Occasional wrong word or��sound alike� substitutions may have inadvertently occurred due to the inherent limitations of voice recognition software. If noted kindly bring it to my
attention for correction.
Anticipated Discharge: Today
Subjective/Interval History
-
Date of Service: November 17, 2024
Objective Data
-
Vital Signs:
Vital Signs
Temp Pulse Resp BP Pulse Ox
97.7 F 75 16 126/92 98
11/17/24 07:30 11/17/24 11:27 11/17/24 11:27 11/17/24 07:30 11/17/24 08:00
I&O
11/16/24 11/17/24 11/18/24
06:59 06:59 06:59
Intake Total 1320 / 1320 1620 / 1620
Balance 1320 / 1320 1620 / 1620
--- NOTE | 2024-11-17 13:24 | W.DS.TRANS ---
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
-
Discharge Instructions:
Discharge Diagnosis/Procedures COPD exacerbation
Acute bronchitis
Chronic compression fractures of vertebra
Constipation
Hypertension
History of pulmonary embolism
Prostate disease
GERD
Diet As tolerated
Activity As tolerated
Driving Restrictions As prior to admission
Blood Work BMP 1 week- see PCP
Instructions:
Stand-Alone Forms:
Changes to Home Medications: Yes
Discharge Medications:
DC Medications w/original date entered in [employer]
benzonatate 200 mg capsule 1 mg PO TIDPRN PRN cough 11/10/24
sildenafil 100 mg tablet 100 mg PO DAILYPRN PRN sexual function 11/10/24
trazodone 100 mg tablet 100 mg PO HS 11/10/24
Held on 11/17/24. Instructions: Resume on 11/21/24.
budesonide-formoterol HFA 160 mcg-4.5 mcg/actuation aerosol inhaler (Symbicort) 2 puff inhalation R BID Lung/breathing issues #10.2 grams 11/17/24
cyclobenzaprine 10 mg tablet 10 mg PO HS Muscle spasm #0 tabs 11/17/24
docusate sodium 100 mg tablet 200 mg (2 x 100 mg) PO DAILY Constipation #0 tabs 11/17/24
guaifenesin 600 mg tablet, extended release 12 hr 600 mg PO Q12 Congestion #0 tabs 11/17/24
ipratropium 0.5 mg-albuterol 3 mg (2.5 mg base)/3 mL nebulization soln 3 ml inhalation R Q4HPRN PRN shortness of breath/wheezing #90 mL 11/17/24
levofloxacin 750 mg tablet 750 mg PO DAILY Infection #2 tabs 11/17/24
lisinopril 10 mg tablet 10 mg PO DAILY Blood pressure #0 tabs 11/17/24
nebulizers #1 ea 11/17/24
omeprazole 40 mg capsule,delayed release 40 mg PO DAILY Gastrointestinal issue #0 caps 11/17/24
oxycodone 5 mg tablet 5 mg PO Q8HPRN PRN moderate pain #8 tabs 11/17/24
polyethylene glycol 3350 17 gram oral powder packet 17 g PO DAILY Constipation #0 ea 11/17/24
prednisone 10 mg tablet See Rx Instructions .Route .COMPLEX Lung/breathing issues #20 tabs 11/17/24
rivaroxaban 20 mg tablet (Xarelto) 20 mg PO DAILY Blood clot prevention/tx #0 tabs 11/17/24
sennosides 8.6 mg tablet (Michelle-victoriano) 17.2 mg (2 x 8.6 mg) PO HS Constipation #0 tabs 11/17/24
tamsulosin 0.4 mg capsule 0.4 mg PO DAILY Urinary issue #0 caps 11/17/24
therapeutic multivitamin 1 tab PO DAILY Supplement #0 tabs 11/17/24
triamcinolone acetonide 0.1 % topical ointment 1 applic topical BID Skin issues #0 grams 11/17/24
zolpidem 10 mg tablet 10 mg PO HS Sleep #0 tabs 11/17/24
Home Medication Changes
new
Prednisone, Levaquin, Symbicort, DuoNeb, Mucinex,
Pending Results: No
--- NOTE | 2024-11-17 13:57 | W.DS.TRANS ---
Addendum entered and electronically signed by Fermín Heredia MD 11/17/24 14:44:
Dictation- [id number]
Original Note:
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
-
Discharge Instructions:
Discharge Diagnosis/Procedures COPD exacerbation
Acute bronchitis
Chronic compression fractures of vertebra
Constipation
Hypertension
History of pulmonary embolism
Prostate disease
GERD
Diet As tolerated
Activity As tolerated
Driving Restrictions As prior to admission
Blood Work BMP 1 week- see PCP
Instructions:
Stand-Alone Forms:
Changes to Home Medications: Yes
Discharge Medications:
DC Medications w/original date entered in [employer]
benzonatate 200 mg capsule 1 mg PO TIDPRN PRN cough 11/10/24
sildenafil 100 mg tablet 100 mg PO DAILYPRN PRN sexual function 11/10/24
trazodone 100 mg tablet 100 mg PO HS 11/10/24
Held on 11/17/24. Instructions: Resume on 11/21/24.
albuterol sulfate 90 mcg/actuation aerosol inhaler (Ventolin HFA) 2 puff inhalation Q6H PRN shortness of breath or wheezing #8.5 grams 11/17/24
budesonide-formoterol HFA 160 mcg-4.5 mcg/actuation aerosol inhaler (Symbicort) 2 puff inhalation R BID Lung/breathing issues #10.2 grams 11/17/24
cyclobenzaprine 10 mg tablet 10 mg PO HS Muscle spasm #0 tabs 11/17/24
docusate sodium 100 mg tablet 200 mg (2 x 100 mg) PO DAILY Constipation #0 tabs 11/17/24
guaifenesin 600 mg tablet, extended release 12 hr 600 mg PO Q12 Congestion #0 tabs 11/17/24
ipratropium 0.5 mg-albuterol 3 mg (2.5 mg base)/3 mL nebulization soln 3 ml inhalation R Q4HPRN PRN shortness of breath/wheezing #90 mL 06/08/25
levofloxacin 750 mg tablet 750 mg PO DAILY Infection #2 tabs 11/17/24
lisinopril 10 mg tablet 10 mg PO DAILY Blood pressure #0 tabs 11/17/24
nebulizers #1 ea 11/17/24
omeprazole 40 mg capsule,delayed release 40 mg PO DAILY Gastrointestinal issue #0 caps 11/17/24
oxycodone 5 mg tablet 5 mg PO Q8HPRN PRN moderate pain #8 tabs 11/17/24
polyethylene glycol 3350 17 gram oral powder packet 17 g PO DAILY Constipation #0 ea 11/17/24
prednisone 10 mg tablet See Rx Instructions .Route .COMPLEX Lung/breathing issues #20 tabs 11/17/24
rivaroxaban 20 mg tablet (Xarelto) 20 mg PO DAILY Blood clot prevention/tx #0 tabs 11/17/24
sennosides 8.6 mg tablet (Michelle-victoriano) 17.2 mg (2 x 8.6 mg) PO HS Constipation #0 tabs 11/17/24
tamsulosin 0.4 mg capsule 0.4 mg PO DAILY Urinary issue #0 caps 11/17/24
therapeutic multivitamin 1 tab PO DAILY Supplement #0 tabs 11/17/24
triamcinolone acetonide 0.1 % topical ointment 1 applic topical BID Skin issues #0 grams 11/17/24
zolpidem 10 mg tablet 10 mg PO HS Sleep #0 tabs 11/17/24
Home Medication Changes
new
Prednisone, Levaquin, Symbicort, DuoNeb, Mucinex,
Pending Results: No
--- NOTE | 2024-11-17 14:13 | CM ---
CM reviewed chart, patient seen with , plan for discharge today. IMM verbally reviewed, provided with copy, placed on chart. Script for nebulizer provided, will greens picker at [facility] tomorrow as they closed at 12:00 p.m., confirmed
earlier this morning they have nebulizers in stock. will provide transportation home. CM will continue to follow for all discharge planning needs.
Plan; home with , script for nebulizer
[2024-11-17 14:24] VITALS: BP 140/89
== END 2024-11-17 14:46 | disposition home or self-care (01) | DRG 191 ==
LOC: 4 WEST ACU 16:42
PROVIDERS: Nurse Practitioner Family; ADMITTING PHYSICIAN Hospitalist; ATTENDING PHYSICIAN Hospitalist; EMERGENCY PHYSICIAN Emergency Medicine; FAMILY PHYSICIAN Hospitalist
DX: J44.1 Chronic obstructive pulmonary disease with (acute) exacerbation (principal); E22.2 Syndrome of inappropriate secretion of antidiuretic hormone; M48.56XA Collapsed vertebra, not elsewhere classified, lumbar region, initial encounter for fracture; M48.54XA Collapsed vertebra, not elsewhere classified, thoracic region, initial encounter for fracture; J20.9 Acute bronchitis, unspecified; K21.9 Gastro-esophageal reflux disease without esophagitis; I10 Essential (primary) hypertension; Z86.711 Personal history of pulmonary embolism; K59.00 Constipation, unspecified; G47.00 Insomnia, unspecified; Z11.52 Encounter for screening for COVID-19; E78.00 Pure hypercholesterolemia, unspecified; Z82.3 Family history of stroke; Z87.891 Personal history of nicotine dependence
CPT/HCPCS: 71046; 80048; 80053; 83930; 83935; 84300; 84443; 85025; 87070; 87205; 87502; 87811; 93005; 94640; 96374; 99285

== ENCOUNTER 2024-11-20 12:15 | Emergency (ER) | payer OTHER, SELFPAY ==
[2024-11-20 12:22] VITALS: BP 180/105
--- NOTE | 2024-11-20 13:25 | ED.GENMED ---
History of Present Illness
General
Chief Complaint: Change in Mental Status
Source: patient
Exam Limitations: none
Time Seen by Provider: 11/20/24 13:13
Nursing documentation reviewed up to this point in time: agreed with
History of Present Illness
History of Present Illness:
Patient with history of alcohol use and discharged from the hospital 4 days ago after receiving treatment for COPD exacerbation/bronchitis, presents to ED secondary to decreased appetite since being discharged home, along with recurrent symptoms
concerning for recurrent alcohol withdrawal. Per patient and spouse, patient has become more anxious, restless, inability to sleep at nighttime, intermittent shaking, and confusion. Patient's last known alcohol intake was 2 weeks ago. Patient has
been taking antibiotics as well as tapering dose of prednisone and Percocet, since being discharged home. Denies nausea, vomiting, or diarrhea. Denies chest pain. Denies shortness of breath. Denies headache. Denies dizziness vision or blurred
vision. Denies loss of sensation or weakness.
Past History
Past History
ED Past Medical History: HTN, Hypercholesterolemia and Other (Pulmonary embolism 4 years ago after shoulder surgery)
ED Past Surgical History: Orthopedic (Fracture right shoulder surgically repaired)
Social History
Tobacco: Former smoker
Alcohol: None
Personal:
Living: with family
Employment: Retired
Review of Systems
Review of Systems
Allergies reviewed?: Yes
All Other Systems: ROS reviewed and negative except as documented in HPI and ROS
Constitutional: Reports no symptoms; Denies fever or chills
Respiratory: Reports cough; Denies trouble breathing
Cardiac: Reports no symptoms; Denies chest pain
ABD/GI: Denies nausea, vomiting or diarrhea
: Reports no symptoms
Musculoskeletal: Reports back pain
Skin: Reports no symptoms
Neurological: Reports other (Confusion); Denies dizzy or headache
Phy Exam
Physical Exam
Physical Exam:
Physical Exam
General: no apparent distress, not acutely ill. afebrile.
Head: nc/at. eomi
Neck: supple. no meningeal signs.
Heart: s1/s2 regular rate and rhythm
Lungs: no acute respiratory distress. diminished breath sounds bilaterally
Abdomen: normal bowel sounds. not tender.
Neuro: alert and oriented x 3. no focal neurological deficits. normal speech. no resting tremor
Skin: no rash
Psychiatric: well kept. interactive and cooperative
Extremities: no edema. no calf tenderness.
Course
Orders/Labs/Results
Orders:
Orders
11/20/24 13:24
CT Head W/o Iv Contrast Urgent
Comment:
Reason For Exam: mental status change
11/20/24 14:06
Alcohol Urgent
Complete Blood Count/With Diff Urgent
Comprehensive Metabolic Panel Urgent
Fentanyl, Urine Urgent
Magnesium Urgent
TSH Urgent
Urinalysis Reflex To Culture Urgent
Date Specimen was Collected: 11/20/24
Time Specimen was Collected: 13:54
Urine Drug Abuse Screen Urgent
Date Specimen was Collected: 11/20/24
Time Specimen was Collected: 13:54
11/20/24 15:19
0.9% Sodium Chloride 1000 ml [Nss] 1,000 ml IV BOLUS
Abnormal Lab Results
11/20/24
14:06
MCH 31.7 H pg
(27.0-31.0)
Abs Immat Gran (auto) 0.1 H 10^3/uL
(0-0.05)
Absolute Lymphs (auto) 0.6 L 10^3/uL
(1.2-3.4)
Immature Gran % 2.1 H %
(0-0.5)
Neutrophils % 83.9 H %
(42.2-75.2)
Lymphocytes % 9.9 L %
(20.5-51.1)
Sodium 133 L mmol/L
(135-145)
BUN 26 H mg/dl
(9-20)
Glucose 122 H mg/dl
(70-99)
Urine Ketones 1+ A
(Negative)
Urine Opiates Screen Positive H
(Negative)
11/20/24 14:06
11/20/24 14:06
Vital Signs
Initial and Last Documented VS:
Initial Vital Signs
Temp Pulse Resp BP Pulse Ox
98.0 F 92 18 180/105 98
11/20/24 12:22 11/20/24 12:22 11/20/24 12:22 11/20/24 12:22 11/20/24 12:22
Last Documented Vital Signs
Temp Pulse Resp BP Pulse Ox
98.0 F 68 16 177/98 99
11/20/24 12:22 11/20/24 18:13 11/20/24 18:13 11/20/24 18:13 11/20/24 17:30
MDM/Problems Addressed
MDM/Problems Addressed:
Pt with an unremarkable workup in ED including blood work, EKG, and CT head. After fluid administration, patient reports 'feeling great'. Patient remains alert, awake, and oriented, during observation. Discussed number of differential diagnosis,
including medication effect versus dehydration versus withdrawal. Decision made to discharge patient home with short course of Ativan, to be used, only as needed, for increased restlessness/agitation. Patient and spouse expressed understanding at
time of discharge, with instructions to continue hydration along with close PCP follow-up. Advised to return to ED with significantly worsening symptoms.
*Critical Care Note
Total Time (30-74mins, 75-104mins- exclusive of procedures): Not Applicable
ED Attending Note
-
Portions of this chart may have been created with voice recognition software.� Occasional wrong word or��sound alike� substitutions may have occurred due to the inherent limitations of voice recognition software.
Discharge Plan
Departure
Patient Disposition: Home (Routine Discharge)
Date of Disposition: 11/20/24
Time of Disposition: 18:03
Patient with high blood pressure during this ER visit?: Yes
Condition: Good
Discharge Problem:
Altered mental status
Instructions: Altered Mental Status (DC)
Prescriptions:
New
lorazepam [Ativan] 0.5 mg tablet
0.5 mg PO DAILY PRN (Reason: agitation) Qty: 5 0RF
No Action
benzonatate 200 mg capsule
1 mg PO TIDPRN PRN (Reason: cough)
sildenafil 100 mg tablet
100 mg PO DAILYPRN PRN (Reason: sexual function)
trazodone 100 mg tablet
100 mg PO HS
ipratropium-albuterol 0.5 mg-3 mg(2.5 mg base)/3 mL Solution For Nebulization
3 ml inhalation R Q4HPRN PRN (Reason: shortness of breath/wheezing) Qty: 90 0RF
sennosides [Michelle-victoriano] 8.6 mg Tablet
17.2 mg PO HS Qty: 0 0RF
polyethylene glycol 3350 17 gram Powder In Packet
17 g PO DAILY Qty: 0 0RF
levofloxacin 750 mg Tablet
750 mg PO DAILY Qty: 2 0RF
oxycodone 5 mg Tablet
5 mg PO Q8HPRN PRN (Reason: moderate pain) Qty: 8 0RF
budesonide-formoterol [Symbicort] 160-4.5 mcg/actuation Hfa Aerosol Inhaler
2 puff inhalation R BID Qty: 10.2 0RF
guaifenesin 600 mg Tablet Extended Release 12hr
600 mg PO Q12 Qty: 0 0RF
cyclobenzaprine 10 mg tablet
10 mg PO HS Qty: 0 0RF
therapeutic multivitamin Tablet
1 tab PO DAILY Qty: 0 0RF
omeprazole 40 mg capsule,delayed release(DR/EC)
40 mg PO DAILY Qty: 0 0RF
tamsulosin 0.4 mg capsule
0.4 mg PO DAILY Qty: 0 0RF
triamcinolone acetonide 0.1 % ointment
1 applic TOPICAL BID Qty: 0 0RF
Rx Instructions:
to legs
lisinopril 10 mg tablet
10 mg PO DAILY Qty: 0 0RF
zolpidem 10 mg tablet
10 mg PO HS Qty: 0 0RF
docusate sodium 100 mg Tablet
200 mg PO DAILY Qty: 0 0RF
Xarelto 20 mg tablet
20 mg PO DAILY Qty: 0 0RF
(DME) nebulizers Misc
See Rx Instructions .Route Qty: 1 0RF
Rx Instructions:
As directed. Q4h Prn SOB
prednisone 10 mg Tablet
See Rx Instructions .ROUTE .COMPLEX Qty: 20 0RF
Rx Instructions:
Take By Mouth:
40 mg daily x2 days, 30 mg daily x2 days,
20 mg daily x2 days, 10 mg daily x2 days.
albuterol sulfate [Ventolin HFA] 90 mcg/actuation HFA aerosol inhaler
2 puff inhalation Q6H PRN (Reason: shortness of breath or wheezing) Qty: 8.5 0RF
Referrals:
Maria Fernanda Crespo MD [Family Provider, Internal Medicine]
Activity Restrictions/Additional Instructions:
As discussed, please follow-up with your primary care physician for reevaluation. Your prescription has been sent electronically to [facility] pharmacy in [place].
Interventions
Interventions:
*Risk Screen - Suicide Last Done: 11/20/24 12:18
*General Assessment Last Done: 11/20/24 12:18
*Neglect/Abuse Screening Last Done: 11/20/24 12:18
*ED- Fall Risk Assessment Last Done: 11/20/24 18:30
*ED COVID-19 Vaccine History Last Done: 11/20/24 12:18
*Nursing Disposition Last Done: 11/20/24 18:30
ED- Pulmonary Assessment Last Done: 11/20/24 14:10
ED- Neurological Assessment Last Done: 11/20/24 14:10
ED- Cardiac Assessment Last Done: 11/20/24 14:10
Discharge Date and Time
Discharge Date/Time: 11/20/24 18:32
Print Language: VIETNAMESE
[2024-11-20 14:00] VITALS: BP 172/100
[2024-11-20 14:08] VITALS: BMI 22.8
[2024-11-20 14:14] LABS: % Immature Granulocytes 2.1 % (0-0.5); % Lymphocytes 9.9 % (20.5-51.1); % Monocytes 4.1 % (1.7-9.3); % Neutrophils 83.9 % (42.2-75.2); Absolute Immature Granulocytes 0.1 10^3/uL (0-0.05); Absolute Lymphocytes 0.6 10^3/uL (1.2-3.4); Absolute Monocytes 0.3 10^3/uL (0.1-0.6); Absolute Neutrophils 5.3 10^3/uL (1.4-6.5); Hematocrit 45.9 % (39.0-52.0); Hemoglobin 16.1 g/dL (13.0-18.0); Mean Corp Hgb Conc. 35.1 g/dL (33.0-37.0); Mean Corpuscular Hgb 31.7 pg (27.0-31.0); Mean Corpuscular Volume 90.4 fL (80.0-94.0); Mean Platelet Volume 8.4 fL (7.4-10.4); Nucleated Red Blood Cells % 0 % (-); Platelet Count 382 10^3/uL (130-400); Red Blood Cell Count 5.08 10^6/uL (4.70-6.10); White Blood Cell Count 6.3 10^3/uL (4.8-10.8)
[2024-11-20 14:20] LABS: Urine Albumin Negative (Neg - Trace); Urine Bilirubin Negative (Negative); Urine Character Clear (Clear); Urine Color Yellow; Urine Glucose Negative (Negative); Urine Ketone 1+ (Negative); Urine Leukocyte Negative (Negative); Urine Nitrite Negative (Negative); Urine Occult Blood Negative (Negative); Urine Urobilinogen Negative (Neg - 1+)
[2024-11-20 14:37] LABS: ALT (SGPT) 29 U/L (0-50); AST (SGOT) 24 U/L (17-59); Alkaline Phosphatase 57 U/L (38-126); Blood Urea Nitrogen 26 mg/dl (9-20); Calcium 9.5 mg/dl (8.4-10.2); Carbon Dioxide 28 mmol/L (22-30); Chloride 99 mmol/L (98-107); Estimated Creatinine Clearance 82 ml/min; Glucose 122 mg/dl (70-99); Magnesium 2.1 mg/dl (1.6-2.3); Potassium 4.9 mmol/L (3.5-5.1); Sodium 133 mmol/L (135-145); Total Bilirubin 0.7 mg/dl (0.2-1.3); Total Protein 6.8 g/dl (6.3-8.2); eGFR > 60.00
[2024-11-20 14:39] LABS: Alcohol None Detected
[2024-11-20 15:00] LABS: Amphetamines Negative (Negative); Barbiturates Negative (Negative); Benzodiazepines Negative (Negative); Buprenorphine Negative (Negative); Cocaine Negative (Negative); Marijuana Negative (Negative); Methadone Negative (Negative); Methamphetamines Negative (Negative); Opiates Positive (Negative); Phencyclidine Negative (Negative); Tricyclic Antidepressants Negative (Negative)
[2024-11-20 15:05] LABS: TSH 1.36 uIU/ml (0.47-4.68)
[2024-11-20 15:15] LABS: Fentanyl, Urine Negative (Negative)
[2024-11-20 16:11] VITALS: BP 179/105
[2024-11-20] MEDS: NSS 1000 IV (16:13)
[2024-11-20 17:00] VITALS: BP 173/102
[2024-11-20 18:13] VITALS: BP 177/98
== END 2024-11-20 18:32 | disposition home or self-care (01) ==
LOC: EMR 12:15
PROVIDERS: EMERGENCY PHYSICIAN Emergency Medicine; FAMILY PHYSICIAN Hospitalist
DX: R41.82 Altered mental status, unspecified (principal); F10.10 Alcohol abuse, uncomplicated; J44.1 Chronic obstructive pulmonary disease with (acute) exacerbation; I10 Essential (primary) hypertension; E78.00 Pure hypercholesterolemia, unspecified; Z86.711 Personal history of pulmonary embolism; Z87.891 Personal history of nicotine dependence
CPT/HCPCS: 99284; 96360; 70450; 80053; 80306; 80307; 81003; 82077; 83735; 84443; 85025

== ENCOUNTER → 2024-11-26 16:05 | Outpatient (REF) | payer OTHER, SELFPAY | LOC: RAD 16:05 | PROVIDERS: ATTENDING PHYSICIAN Hospitalist | DX: M54.2 Cervicalgia (principal) | CPT/HCPCS: 72040 ==

== ENCOUNTER → 2024-11-27 15:21 | Outpatient (REF) | payer OTHER, SELFPAY | LOC: RAD 15:21 | PROVIDERS: ATTENDING PHYSICIAN Hospitalist | DX: M54.50 Low back pain, unspecified (principal) | CPT/HCPCS: 72100 ==

== ENCOUNTER → 2024-12-26 20:26 | Outpatient (REF) | payer OTHER, SELFPAY | LOC: MRI 3T 20:26 | PROVIDERS: ATTENDING PHYSICIAN Hospitalist | DX: R41.0 Disorientation, unspecified (principal) | CPT/HCPCS: 70553; A9575 ==

== ENCOUNTER → 2025-01-03 06:33 | Outpatient (REF) | payer OTHER, SELFPAY | LOC: MRI 06:33 | PROVIDERS: ATTENDING PHYSICIAN Specialist; FAMILY PHYSICIAN Hospitalist | DX: M54.12 Radiculopathy, cervical region (principal); M54.16 Radiculopathy, lumbar region | CPT/HCPCS: 72141; 72148 ==

== ENCOUNTER → 2025-02-19 12:32 | Outpatient (REF) | payer OTHER, SELFPAY | LOC: HWRAD 12:32 | PROVIDERS: ATTENDING PHYSICIAN Internal Medicine Critical Care Medicine; FAMILY PHYSICIAN Hospitalist | DX: Z87.891 Personal history of nicotine dependence (principal) | CPT/HCPCS: 71271 ==

== ENCOUNTER → 2025-02-20 09:02 | Outpatient (REF) | payer OTHER, SELFPAY | LOC: RCS 09:02 | PROVIDERS: ATTENDING PHYSICIAN Internal Medicine Critical Care Medicine; FAMILY PHYSICIAN Hospitalist | DX: R06.09 Other forms of dyspnea (principal) | CPT/HCPCS: 93306 ==

== ENCOUNTER 2025-05-16 06:27 | Outpatient (RCR) | payer SELFPAY | END 2025-05-16 23:59 | disposition home or self-care (01) | LOC: ROT 06:27 | PROVIDERS: ATTENDING PHYSICIAN Hospitalist | DX: Z02.4 Encounter for examination for driving license (principal) ==

== ENCOUNTER 2025-06-10 13:30 | Outpatient (RCR) | payer MEDICARE, OTHER, SELFPAY | END 2025-06-10 23:59 | disposition home or self-care (01) | LOC: PURB 13:30 | PROVIDERS: ATTENDING PHYSICIAN Internal Medicine Critical Care Medicine; FAMILY PHYSICIAN Hospitalist | DX: J44.9 Chronic obstructive pulmonary disease, unspecified (principal) | CPT/HCPCS: 94625; G0237 ==